=== PATIENT | male | born 1990 | race African-American/Black ===

== ENCOUNTER 2020-05-15 10:24 | Emergency (ER) | payer MEDICAID ==
[~2020-05-15] VITALS: Ht 180.3 cm; Wt 86.0 kg
[2020-05-15 10:28] VITALS: BP 109/67
[2020-05-15] MEDS ORDERED: ACETAMINOPHEN 325MG TABLET PO ONE (11:00)
== END 2020-05-15 12:46 | disposition home or self-care (01) ==
LOC: ER 10:24
DX: M20.011 Mallet finger of right finger(s) (principal); S62.626B Displaced fracture of middle phalanx of right little finger, initial encounter for open fracture; Y04.0XXA Assault by unarmed brawl or fight, initial encounter; Y93.89 Activity, other specified; Y92.89 Other specified places as the place of occurrence of the external cause
CPT/HCPCS: 29130; 73130; 99283